=== PATIENT | male | born 1950 | race Caucasian/White ===

== ENCOUNTER 2019-03-31 19:25 | Emergency (ER) | payer MEDICARE, OTHER ==
[2019-03-31 20:23] LABS: ABS Basophils 0.1 10^3/ul (0-0.2); ABS Eosinophils 0.2 10^3/ul (0-0.6); ABS Lymphocytes 1.7 10^3/ul (1.0-4.8); ABS Monocytes 0.8 10^3/ul (0-0.8); ABS Neutrophils 6.2 10^3/ul (1.5-7.7); Eosinophil % 2.5 %; Hematocrit 31 % (42-52); Lymphocyte % 18.9 %; Mean Corpuscular HGB Conc 36 g/dL (31-36); Mean Corpuscular Hemoglobin 30 pg (27-31); Mean Corpuscular Volume 84 fL (80-94); Mean Platelet Volume 8.6 fL (7.4-10.4); Platelet Count 200 10^3/uL (150-450); Red Blood Count 3.65 10^6 /uL (4.18-5.48); Red Cell Distribution Width 13 % (10-15); White Blood Count 9.1 10^3/uL (3.5-10.8)
[2019-03-31 20:41] LABS: INR 1.09 (0.82-1.09)
[2019-03-31 20:43] LABS: Troponin I 0.03 ng/mL (<0.04)
[2019-03-31 20:50] LABS: Albumin 4.2 g/dL (3.2-5.2); Albumin/Globulin Ratio 1.5 (1-3); BUN/Creatinine Ratio 20.5 (8-20); Calcium 9.8 mg/dL (8.6-10.3); EGFR African American 71.7 (>60); EGFR Non-African American 59.2 (>60); Globulin 2.8 g/dL (2-4); Potassium 4.6 mmol/L (3.5-5.0); Total Bilirubin 0.5 mg/dL (0.2-1.0)
--- NOTE | 2019-03-31 22:14 | ED ---
Complex/Multi-Sys Presentation - HPI Summary HPI Summary: Patient is a 68 y/o M presenting to ED with complaints of lower sternal/ epigastric pain for the past few days. In the room, he reports no pain. Pain is described as a "gas" pain. Pain has been intermittent. He denies SOB, nausea, dizziness, diaphoresis. He notes that belching alleviates Sx. He went to [facility] for evaluation. EKG and bloodwork were done, patient was advised to come to [facility] for further evaluation. Hx of cardiac catherization with Dr. Abel a few years ago. Patient reports that he has been active the past few days, denies any difficulty with exertion. On triage, pain is rated 3/ 10, nothing is noted to aggravate/alleviate Sx. Home medications and allergies are reviewed. - History Of Current Complaint Chief Complaint: EDChestPainROMI Time Seen by Provider: 03/31/19 22:05 Hx Obtained From: Patient Onset/Duration: Lasting Days, Resolved Timing: Intermittent, Lasting: Severity Currently: None Aggravating Factor(s): nothing Alleviating Factor(s): belching Associated Signs And Symptoms: Positive: Chest Pain. 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 Denies: Hx Fibromyalgia, Hx Osteoporosis, Hx Scoliosis, Hx Tendonitis, Other Musculoskeletal History Sensory History: Denies: Hx Cataracts, Hx Contacts or Glasses, Hx Eye Injury, Hx Eye Prosthesis, Hx Glaucoma, Hx Legally Blind, Hx Macular Degeneration, Hx Vision Problem, Hx Deafness, Hx Hearing Aid, Hx Hearing Problem, Other Sensory Impairments Opthamlomology History: Denies: Hx Cataracts, Hx Contacts or Glasses, Hx Eye Injury, Hx Eye Prosthesis, Hx Glaucoma, Hx Legally Blind, Hx Macular Degeneration, Hx Vision Problem, Other Sensory Impairments Neurological History: Denies: Hx Dementia, Hx Developmental Delay, Hx Headaches, Hx Migraine, Hx Nerve Disease, Hx Seizures, Hx Spinal Cord Injury, Hx Transient Ischemic Attacks (TIA), Other Neuro Impairments/Disorders Psychiatric History: Denies: Hx Panic Disorder - Surgical History Surgery Procedure, Year, and Place: congenital LT hip replacement. right shoulder rotator cuff. WRIST. LT FOOT AMPUTATION BELOW ANKLE Hx Anesthesia Reactions: No Infectious Disease History: No Infectious Disease History: Denies: Hx Clostridium Difficile, Hx Hepatitis, Hx Human Immunodeficiency Virus (HIV), Hx of Known/Suspected MRSA, Hx Shingles, Hx Tuberculosis, Hx Known/ Suspected VRE, Hx Known/Suspected VRSA, History Other Infectious Disease, Traveled Outside the [place] in Last 30 Days - Family History Known Family History: Positive: Diabetes - Social History Alcohol Use: None Substance Use Type: Reports: None Smoking Status (MU): Former Smoker Type: Cigarettes Amount Used/How Often: 20 POUCHES PER DAY Length of Time of Smoking/Using Tobacco: YEARS Review of Systems Negative: Skin Diaphoresis Positive: Chest Pain Negative: Shortness Of Breath Negative: Nausea Neurological: Other - negative - dizziness All Other Systems Reviewed And Are Negative: Yes Physical Exam Vital Signs On Initial Exam: Initial Vitals Temp Pulse Resp BP Pulse Ox 98.7 F 69 18 178/63 97 03/31/19 19:28 03/31/19 19:28 03/31/19 19:28 03/31/19 19:28 03/31/19 19:28 Diagnostics - Vital Signs Vital Signs Temp Pulse Resp BP Pulse Ox 03/31/19 19:28 98.7 F 69 18 178/63 97 - Laboratory Lab Results: Lab Results 03/31/19 03/31/19 03/31/19 Range/Units 20:15 20:15 20:15 WBC 9.1 (3.5-10.8) 10^3/uL RBC 3.65 L (4.18-5.48) 10^6 /uL Hgb 11.0 L (14.0-18.0) g/dL Hct 31 L (42-52) % MCV 84 (80-94) fL MCH 30 (27-31) pg MCHC 36 (31-36) g/dL RDW 13 (10-15) % Plt Count 200 (150-450) 10^3/uL MPV 8.6 (7.4-10.4) fL Neut % (Auto) 68.9 % Lymph % (Auto) 18.9 % [place] % (Auto) 8.7 % Eos % (Auto) 2.5 % Baso % (Auto) 1.0 % Absolute Neuts (auto) 6.2 (1.5-7.7) 10^3/ul Absolute Lymphs (auto) 1.7 (1.0-4.8) 10^3/ul Absolute Monos (auto) 0.8 (0-0.8) 10^3/ul Absolute Eos (auto) 0.2 (0-0.6) 10^3/ul Absolute Basos (auto) 0.1 (0-0.2) 10^3/ul Absolute Nucleated RBC 0.0 10^3/ul Nucleated RBC % 0.0 INR (Anticoag Therapy) 1.09 (0.82-1.09) Sodium 139 (135-145) mmol/L Potassium 4.6 (3.5-5.0) mmol/L Chloride 109 (101-111) mmol/L Carbon Dioxide 24 (22-32) mmol/L Anion Gap 6 (2-11) mmol/L BUN 25 H (6-24) mg/dL Creatinine 1.22 H (0.67-1.17) mg/dL Est GFR ( Amer) 71.7 (>60) Est GFR (Non-Af Amer) 59.2 (>60) BUN/Creatinine Ratio 20.5 H (8-20) Glucose 170 H (70-100) mg/dL Calcium 9.8 (8.6-10.3) mg/dL Total Bilirubin 0.50 (0.2-1.0) mg/dL AST 11 L (13-39) U/L ALT 22 (7-52) U/L Alkaline Phosphatase 78 (34-104) U/L Troponin I 0.03 (<0.04) ng/mL Total Protein 7.0 (6.4-8.9) g/dL Albumin 4.2 (3.2-5.2) g/dL Globulin 2.8 (2-4) g/dL Albumin/Globulin Ratio 1.5 (1-3) Result Diagrams: 03/31/19 20:15 03/31/19 20:15 Lab Statement: Any lab studies that have been ordered have been reviewed, and results considered in the medical decision making process. - EKG 1935 Cardiac Rate: Other Rate - afib with rate of 74 BPM EKG Rhythm: Atrial Fibrillation EKG Comparison: No Significant Change - no priors to compare Summary of EKG Findings: EKG showed afib with rate of 74 BPM, no priors to compare, no acute changes. Re-Evaluation - Re-Evaluation First Eval Re-Evaluation Time: 02:31 Change: Improved Comment: Patient reported that he wants to go home. Results of labs and tests were discussed, he will be discharged to home. Complex Multi-Symp Course/Dx Course Of Treatment: Patient is a 68 y/o M presenting to ED with complaints of lower sternal/epigastric pain for the past few days. In the room, he reports no pain. Pain is described as a "gas" pain. Pain has been intermittent. He denies SOB, nausea, dizziness, diaphoresis. He notes that belching alleviates Sx. He went to [facility] for evaluation. EKG and bloodwork were done, patient was advised to come to [facility] for further evaluation. Hx of cardiac catherization with Dr. Abel a few years ago. Patient reports that he has been active the past few days, denies any difficulty with exertion. Physical exam is unremarkable. EKG showed afib with rate of 74 BPM, no priors to compare, no acute changes. Labs showed RBC 3.65, Hgb 11, Hct 31, BUN 25, creatinine 1.22, BUN/creatinine 20.5, glucose 170, AST 11. First and second trop were 0.03. Patient reported that he wants to go home. Results of labs and tests were discussed, he will be discharged to home. - Diagnoses Provider Diagnoses: Chest pain Discharge - Sign-Out/Discharge Documenting (check all that apply): Patient Departure - DISCHARGE Patient Received Moderate/Deep Sedation with Procedure: No - Discharge Plan Condition: Stable Disposition: HOME Patient Education Materials: Noncardiac Chest Pain (ED) Referrals: Roshan Marx DO [Primary Care Provider] - 3 Days - Billing Disposition and Condition Condition: STABLE Disposition: Home - Attestation Statements Document Initiated by Scribe: Yes Documenting Scribe: MOE KENNEY Provider For Whom Scribe is Documenting (Include Credential): YANET WATTS MD Scribe Attestation: MOE Adame, scribed for YANET WATTS MD on 04/04/19 at 0750. Scribe Documentation Reviewed: Yes Provider Attestation: The documentation as recorded by the scribe, MOE KENNEY accurately reflects the service I personally performed and the decisions made by me, YANET WATTS MD Status of Scribe Document: Viewed
[2019-04-01 02:27] VITALS: BP 192/102
== END 2019-04-01 02:52 | disposition home or self-care (01) ==
LOC: ED 19:25
DX: R07.89 Other chest pain (principal); I48.91 Unspecified atrial fibrillation; E11.40 Type 2 diabetes mellitus with diabetic neuropathy, unspecified; Z96.642 Presence of left artificial hip joint; Z89.432 Acquired absence of left foot; Z87.891 Personal history of nicotine dependence
CPT/HCPCS: 36415; 80053; 84484; 85025; 85610; 93005; 99283

== ENCOUNTER 2021-05-21 19:57 | Inpatient (IN) ==
[2021-05-21 20:59] LABS: ABS Basophils 0.1 10^3/ul (0-0.2); ABS Lymphocytes 0.6 10^3/ul (1.0-4.8); ABS Monocytes 1.5 10^3/ul (0-0.8); ABS Neutrophils 14.4 10^3/ul (1.5-7.7); Eosinophil % 0.2 %; Hematocrit 36 % (42-52); Hemoglobin 11.7 g/dL (14.0-18.0); Lymphocyte % 3.4 %; Mean Corpuscular HGB Conc 33 g/dL (31-36); Mean Corpuscular Hemoglobin 29 pg (27-31); Mean Corpuscular Volume 87 fL (80-94); Mean Platelet Volume 8.9 fL (7.4-10.4); Platelet Count 240 10^3/uL (150-450); Red Blood Count 4.11 10^6 /uL (4.18-5.48); Red Cell Distribution Width 14 % (10-15); White Blood Count 16.6 10^3/uL (3.5-10.8)
[2021-05-21 21:11] LABS: ALT 23 U/L (7-52); AST 16 U/L (13-39); Albumin 4.1 g/dL (3.2-5.2); Alkaline Phosphatase 109 U/L (35-149); Anion Gap 9 mmol/L (2-11); Blood Urea Nitrogen 32 mg/dL (6-24); CO2 Carbon Dioxide 25 mmol/L (22-32); Calcium 9.5 mg/dL (8.6-10.3); Chloride 100 mmol/L (101-111); Creatine Kinase 167 U/L (10-223); EGFR African American 44.6 (>60); EGFR Non-African American 36.9 (>60); Globulin 4.1 g/dL (2-4); Glucose 310 mg/dL (70-100); Potassium 4.7 mmol/L (3.5-5.0); Sodium 134 mmol/L (135-145); Total Protein 8.2 g/dL (6.4-8.9)
[2021-05-21 21:33] LABS: INR 1.37 (0.86-1.15)
[2021-05-21 21:39] LABS: Alcohol, S < 13 mg/dL (<10)
[2021-05-21] MEDS ORDERED: NS 0.9% 1000 ml BAG 1,000 ML IV ONE (21:43)
[2021-05-21] MEDS ORDERED: Iodixanol (CONTRAST) 320 MG/ML 100 ML SDV IV ONE (21:56)
[2021-05-22 01:34] LABS: Urine Appearance Cloudy; Urine Bilirubin Negative (Negative); Urine Blood 2+ (Negative); Urine Color Yellow; Urine Glucose 2+(150 mg/dL) (Negative); Urine Ketones Negative (Negative); Urine Nitrite Negative (Negative); Urine Protein 2+(100 mg/dL) (Negative); Urine Specific Gravity 1.042 (1.002-1.030); Urine Urobilinogen Negative (Negative)
[2021-05-22] MEDS ORDERED: Piperacillin/Tazobac ADVAN 3.375 GM in NS 0.9% 100 ml BAG 100 ML IV ONE (01:40)
[2021-05-22 01:53] LABS: Urine Bacteria 1+ (Absent); Urine Granular Casts Present (Absent); Urine Red Blood Cell 1+(3-5/hpf) (Absent); Urine White Blood Cell Trace(0-5/hpf) (Absent)
[2021-05-22 03:26] LABS: C Reactive Protein 16.66 mg/L (<8.01)
[2021-05-22] MEDS ORDERED: Dextrose 50% Syringe 50 ml 25 GM/50 ML SYRINGE IV PUSH PRN (05:03)
[2021-05-22 09:52] LABS: Hematocrit 32 % (42-52); Hemoglobin 10.7 g/dL (14.0-18.0); Mean Corpuscular HGB Conc 34 g/dL (31-36); Mean Corpuscular Hemoglobin 29 pg (27-31); Mean Corpuscular Volume 86 fL (80-94); Mean Platelet Volume 9.4 fL (7.4-10.4); Platelet Count 208 10^3/uL (150-450); Red Blood Count 3.68 10^6 /uL (4.18-5.48); Red Cell Distribution Width 14 % (10-15)
[2021-05-22 10:10] LABS: Calcium 9.1 mg/dL (8.6-10.3); EGFR African American 45.8 (>60); EGFR Non-African American 37.8 (>60); Magnesium 2.3 mg/dL (1.9-2.7); Potassium 4.5 mmol/L (3.5-5.0)
[2021-05-22] MEDS ORDERED: Insulin GLARGINE 100 un/ml 10 ml VIAL SUBCUT SCH (21:00)
[2021-05-22] MEDS: Mometasone/Formoter 200/5 MDI INH SCH (21:43)
[2021-05-22] MEDS: CMC:Simvastatin 20 mg TAB (NF) PO SCH (22:31)
[2021-05-23 06:14] LABS: ABS Basophils 0.1 10^3/ul (0-0.2); ABS Eosinophils 0.3 10^3/ul (0-0.6); ABS Lymphocytes 1.5 10^3/ul (1.0-4.8); ABS Monocytes 1.1 10^3/ul (0-0.8); ABS Neutrophils 6.8 10^3/ul (1.5-7.7); Hematocrit 31 % (42-52); Hemoglobin 10.5 g/dL (14.0-18.0); Lymphocyte % 15.3 %; Mean Corpuscular HGB Conc 34 g/dL (31-36); Mean Corpuscular Hemoglobin 30 pg (27-31); Mean Corpuscular Volume 87 fL (80-94); Mean Platelet Volume 9.3 fL (7.4-10.4); Nucleated Red Blood Cells % 0.1; Platelet Count 199 10^3/uL (150-450); Red Blood Count 3.57 10^6 /uL (4.18-5.48); Red Cell Distribution Width 14 % (10-15); White Blood Count 9.7 10^3/uL (3.5-10.8)
[2021-05-23 06:29] LABS: Calcium 9.1 mg/dL (8.6-10.3); EGFR African American 66.2 (>60); EGFR Non-African American 54.7 (>60); Magnesium 2.2 mg/dL (1.9-2.7); Potassium 4.2 mmol/L (3.5-5.0)
[2021-05-23] MEDS: Aspirin EC 81 mg TAB.EC (enteric coated) PO SCH (08:19)
[2021-05-23] MEDS: Fluticasone NASAL SPRAY 50MCG 16 gm SPRAY BTL INTRANASAL SCH (08:24)
[2021-05-23] MEDS: Mometasone/Formoter 200/5 MDI INH SCH ×2 (08:32→21:51)
[2021-05-23 17:32] LABS: Glucose Confirmatory 516 mg/dL (70-100)
[2021-05-23] MEDS ORDERED: Dextrose 50% Syringe 50 ml 25 GM/50 ML SYRINGE IV PUSH PRN ×2 (17:32→17:54)
[2021-05-23] MEDS: CMC:Simvastatin 20 mg TAB (NF) PO SCH (18:00)
[2021-05-23] MEDS ORDERED: Insulin GLARGINE 100 un/ml 10 ml VIAL SUBCUT SCH (21:00)
[2021-05-24 06:18] LABS: ABS Basophils 0.1 10^3/ul (0-0.2); ABS Eosinophils 0.5 10^3/ul (0-0.6); ABS Monocytes 1.2 10^3/ul (0-0.8); ABS Neutrophils 7.4 10^3/ul (1.5-7.7); Eosinophil % 4.1 %; Hematocrit 29 % (42-52); Hemoglobin 9.7 g/dL (14.0-18.0); Lymphocyte % 17.7 %; Mean Corpuscular HGB Conc 34 g/dL (31-36); Mean Corpuscular Hemoglobin 29 pg (27-31); Mean Corpuscular Volume 86 fL (80-94); Mean Platelet Volume 9.2 fL (7.4-10.4); Platelet Count 196 10^3/uL (150-450); Red Blood Count 3.36 10^6 /uL (4.18-5.48); Red Cell Distribution Width 14 % (10-15); White Blood Count 11.1 10^3/uL (3.5-10.8)
[2021-05-24 06:37] LABS: EGFR African American 55.7 (>60); Potassium 4.5 mmol/L (3.5-5.0)
[2021-05-24] MEDS ORDERED: Lactated Ringers 1000 ml BAG 1,000 ML IV ONE (06:59)
[2021-05-24] MEDS: Fluticasone NASAL SPRAY 50MCG 16 gm SPRAY BTL INTRANASAL SCH (08:48)
[2021-05-24] MEDS: Aspirin EC 81 mg TAB.EC (enteric coated) PO SCH (08:50)
[2021-05-24] MEDS: Mometasone/Formoter 200/5 MDI INH SCH ×2 (10:45→20:15)
[2021-05-24] MEDS: Albuterol HFA INHALER 8 gm MDI INH PRN ×2 (12:15→18:16)
[2021-05-24 16:06] LABS: Calcium 8.8 mg/dL (8.6-10.3); EGFR Non-African American 42.2 (>60)
[2021-05-24 16:07] LABS: Potassium 5.3 mmol/L (3.5-5.0)
[2021-05-24] MEDS ORDERED: Sodium Polystyrene ORAL.SUSP 15 GM/60 ML BTL PO ONE (17:07)
[2021-05-24] MEDS: CMC:Simvastatin 20 mg TAB (NF) PO SCH (18:14)
[2021-05-24] MEDS ORDERED: Insulin GLARGINE 100 un/ml 10 ml VIAL SUBCUT SCH (21:00)
[2021-05-24 21:53] LABS: EGFR African American 53.3 (>60)
[2021-05-24 21:58] LABS: Potassium 5.2 mmol/L (3.5-5.0)
[2021-05-25 06:57] LABS: ABS Basophils 0.1 10^3/ul (0-0.2); ABS Eosinophils 0.4 10^3/ul (0-0.6); ABS Lymphocytes 2.1 10^3/ul (1.0-4.8); Eosinophil % 4.3 %; Hematocrit 32 % (42-52); Hemoglobin 10.9 g/dL (14.0-18.0); Lymphocyte % 21.6 %; Mean Corpuscular HGB Conc 34 g/dL (31-36); Mean Corpuscular Hemoglobin 29 pg (27-31); Mean Corpuscular Volume 87 fL (80-94); Mean Platelet Volume 9.4 fL (7.4-10.4); Platelet Count 224 10^3/uL (150-450); Red Blood Count 3.72 10^6 /uL (4.18-5.48); Red Cell Distribution Width 14 % (10-15); White Blood Count 9.5 10^3/uL (3.5-10.8)
[2021-05-25 07:17] LABS: Calcium 9.1 mg/dL (8.6-10.3); EGFR African American 53.7 (>60); EGFR Non-African American 44.3 (>60); Potassium 4.5 mmol/L (3.5-5.0)
[2021-05-25] MEDS: Mometasone/Formoter 200/5 MDI INH SCH ×2 (08:47→19:17)
[2021-05-25] MEDS: Aspirin EC 81 mg TAB.EC (enteric coated) PO SCH (09:06)
[2021-05-25] MEDS: Fluticasone NASAL SPRAY 50MCG 16 gm SPRAY BTL INTRANASAL SCH (09:08)
[2021-05-25] MEDS: Mupirocin 2% OINT TUBE TOPICAL SCH (16:30)
[2021-05-25] MEDS: CMC:Simvastatin 20 mg TAB (NF) PO SCH (17:46)
[2021-05-25] MEDS ORDERED: Insulin GLARGINE 100 un/ml 10 ml VIAL SUBCUT SCH (21:00)
[2021-05-26] MEDS: Mometasone/Formoter 200/5 MDI INH SCH (07:45)
[2021-05-26] MEDS: Aspirin EC 81 mg TAB.EC (enteric coated) PO SCH (08:12)
[2021-05-26] MEDS: Fluticasone NASAL SPRAY 50MCG 16 gm SPRAY BTL INTRANASAL SCH (08:13)
[2021-05-26 11:40] VITALS: BP 155/48
[2021-05-26] MEDS: Mupirocin 2% OINT TUBE TOPICAL SCH (12:04)
[2021-05-26] MEDS: CMC:Simvastatin 20 mg TAB (NF) PO SCH (17:52)
== END 2021-05-26 18:30 | disposition home or self-care (01) | DRG 684 ==
LOC: ED 19:57 → MED 19:57
PROVIDERS: ADMIT Hospitalist; ATTEND Internal Medicine

== ENCOUNTER 2023-07-12 12:58 | Inpatient (IN) ==
[2023-07-12] MEDS ORDERED: Bumetanide IV 0.25 MG/ML 4 ml VIAL (1 mg) IV SLOW PU ONE ×2 (14:21→16:23)
[2023-07-12] MEDS ORDERED: Dextrose 50% Syringe 50 ml 25 GM/50 ML SYRINGE IV PUSH PRN (14:38)
[2023-07-12 15:32] LABS: ABS Basophils 0.1 10^3/uL (0.0-0.1); ABS Eosinophils 0.4 10^3/uL (0.0-0.5); ABS Lymphocytes 1.3 10^3/uL (1.0-4.8); ABS Monocytes 0.9 10^3/uL (0.0-1.1); ABS Neutrophils 8.3 10^3/uL (1.5-7.6); ABS Nucleated RBC 0.01 10^3/ul; Eosinophil % 3.5 %; Hematocrit 29.2 % (38-53); Hemoglobin 10.3 g/dL (13.2-16.3); Lymphocyte % 12.1 %; Mean Corpuscular Hemoglobin 29.9 pg (27-33); Mean Corpuscular Hgb Conc 35.2 g/dL (31-36); Mean Corpuscular Volume 85.2 fL (80-97); Mean Platelet Volume 9.2 fL (7.5-11.2); Nucleated Red Blood Cells % 0.1 /100 WBC (0.0-0.4); Platelet Count 183 10^3/uL (150-450); Red Blood Count 3.43 10^6/uL (4.06-5.63); Red Cell Distribution Width 13.7 % (12-17); White Blood Count 11.1 10^3/uL (3.6-10.2)
[2023-07-12 15:46] LABS: CO2 Carbon Dioxide 22 mmol/L (22-32); Calcium 9.4 mg/dL (8.6-10.3); Chloride 108 mmol/L (101-111); Sodium 137 mmol/L (135-145)
[2023-07-12 15:51] LABS: ALT 20 U/L (7-52); Albumin/Globulin Ratio 1.4 (1-3); Alkaline Phosphatase 142 U/L (35-149); Blood Urea Nitrogen 45 mg/dL (6-24); Creatinine, Serum 1.87 mg/dL (0.67-1.17); Globulin 2.9 g/dL (2-4); Glucose 171 mg/dL (70-100); Total Protein 6.9 g/dL (6.4-8.9); eGFR CKD-EPI 37.7 (>60)
[2023-07-12 15:55] LABS: Anion Gap 7 mmol/L (2-16)
[2023-07-12 15:56] LABS: High Sens Troponin Baseline 20 pg/mL (<20)
[2023-07-12 17:03] LABS: Potassium Redraw 5.6 mmol/L (3.5-5.0)
[2023-07-12] MEDS ORDERED: SODIUM ZIRCONIUM CYCLOSILICATE 10 GM PACKET PO ONE (17:53)
[2023-07-13 05:25] LABS: Albumin 3.8 g/dL (3.2-5.2); Albumin/Globulin Ratio 1.5 (1-3); Calcium 9.1 mg/dL (8.6-10.3); Creatinine, Serum 2.02 mg/dL (0.67-1.17); Globulin 2.6 g/dL (2-4); Potassium 5.1 mmol/L (3.5-5.0); Total Bilirubin 0.5 mg/dL (0.2-1.0); Total Protein 6.4 g/dL (6.4-8.9); eGFR CKD-EPI 34.4 (>60)
[2023-07-14 01:01] LABS: Urine Appearance Clear; Urine Bilirubin Negative (Negative); Urine Blood 1+ (Negative); Urine Color Yellow; Urine Glucose 1+(50 mg/dL) (Negative); Urine Ketones Negative (Negative); Urine Nitrite Negative (Negative); Urine Protein 3+(>=500 mg/dL) (Negative); Urine Specific Gravity 1.012 (1.002-1.030); Urine Urobilinogen Negative (Negative)
[2023-07-14 01:41] LABS: Urine Amorphous Crystals Present (Absent); Urine Bacteria Absent (Absent); Urine Red Blood Cell Trace(0-2/hpf) (Absent); Urine Squamous Epithelial Cell Present (Absent); Urine White Blood Cell Trace(0-5/hpf) (Absent)
[2023-07-14 10:26] LABS: ABS Basophils 0.1 10^3/uL (0.0-0.1); ABS Eosinophils 0.1 10^3/uL (0.0-0.5); ABS Neutrophils 10.2 10^3/uL (1.5-7.6); Eosinophil % 1.1 %; Hematocrit 28.1 % (38-53); Hemoglobin 9.9 g/dL (13.2-16.3); Lymphocyte % 8.4 %; Mean Corpuscular Hemoglobin 30.2 pg (27-33); Mean Corpuscular Hgb Conc 35.2 g/dL (31-36); Mean Corpuscular Volume 85.7 fL (80-97); Mean Platelet Volume 8.9 fL (7.5-11.2); Platelet Count 170 10^3/uL (150-450); Red Blood Count 3.28 10^6/uL (4.06-5.63); Red Cell Distribution Width 13.6 % (12-17); White Blood Count 12.4 10^3/uL (3.6-10.2)
[2023-07-14 11:14] LABS: Albumin 3.5 g/dL (3.2-5.2); Albumin/Globulin Ratio 1.3 (1-3); Creatinine, Serum 1.81 mg/dL (0.67-1.17); Globulin 2.7 g/dL (2-4); Potassium 5.1 mmol/L (3.5-5.0); Total Bilirubin 0.6 mg/dL (0.2-1.0); Total Protein 6.2 g/dL (6.4-8.9); eGFR CKD-EPI 39.2 (>60)
[2023-07-14] MEDS ORDERED: Bumetanide IV 0.25 MG/ML 4 ml VIAL (1 mg) IV SLOW PU ONE (11:29)
[2023-07-15 06:49] LABS: ABS Basophils 0.2 10^3/uL (0.0-0.1); ABS Eosinophils 0.4 10^3/uL (0.0-0.5); ABS Lymphocytes 1.5 10^3/uL (1.0-4.8); ABS Monocytes 1.3 10^3/uL (0.0-1.1); Hematocrit 29.7 % (38-53); Hemoglobin 10.4 g/dL (13.2-16.3); Mean Corpuscular Hemoglobin 29.7 pg (27-33); Mean Corpuscular Volume 84.8 fL (80-97); Mean Platelet Volume 8.8 fL (7.5-11.2); Platelet Count 191 10^3/uL (150-450); Red Cell Distribution Width 13.4 % (12-17); White Blood Count 12.3 10^3/uL (3.6-10.2)
[2023-07-15 08:03] LABS: Calcium 8.8 mg/dL (8.6-10.3); Creatinine, Serum 1.78 mg/dL (0.67-1.17); Potassium 4.9 mmol/L (3.5-5.0)
[2023-07-16 06:02] LABS: ABS Basophils 0.1 10^3/uL (0.0-0.1); ABS Eosinophils 0.5 10^3/uL (0.0-0.5); ABS Lymphocytes 1.7 10^3/uL (1.0-4.8); ABS Monocytes 1.3 10^3/uL (0.0-1.1); Eosinophil % 4.4 %; Hematocrit 30.7 % (38-53); Hemoglobin 10.8 g/dL (13.2-16.3); Lymphocyte % 16.2 %; Mean Corpuscular Hemoglobin 29.6 pg (27-33); Mean Corpuscular Hgb Conc 35.1 g/dL (31-36); Mean Corpuscular Volume 84.3 fL (80-97); Mean Platelet Volume 9.2 fL (7.5-11.2); Platelet Count 203 10^3/uL (150-450); Red Blood Count 3.64 10^6/uL (4.06-5.63); Red Cell Distribution Width 13.4 % (12-17); White Blood Count 10.6 10^3/uL (3.6-10.2)
[2023-07-16 06:27] LABS: Calcium 8.9 mg/dL (8.6-10.3); Creatinine, Serum 1.75 mg/dL (0.67-1.17); Magnesium 2.2 mg/dL (1.9-2.7); Potassium 4.7 mmol/L (3.5-5.0); eGFR CKD-EPI 40.9 (>60)
[2023-07-16 07:40] LABS: Ferritin 78.5 ng/mL (24-336)
[2023-07-16] MEDS ORDERED: Iron Sucrose 200 MG in NS 0.9% 100 ml BAG 100 ML IVPB ONE (08:00)
[2023-07-16 08:10] LABS: HDL Cholesterol 28.5 mg/dL
[2023-07-16 14:42] VITALS: BP 181/51
== END 2023-07-16 17:04 | disposition home or self-care (01) | DRG 291 ==
LOC: ED 12:58 → EDHOLD 14:04 → SUATTDRO 14:04 → MEDTELE 14:04
PROVIDERS: ADMIT Student in an Organized Health Care Education/Training Program; ATTEND Internal Medicine